=== PATIENT | female | born 1995 | race Caucasian/White ===

== ENCOUNTER 2023-12-06 11:21 | Emergency (ER) | payer OTHER, SELFPAY ==
[2023-12-06 11:23] VITALS: BP 157/96
[2023-12-06 11:36] VITALS: BMI 26.7
[2023-12-06 11:40] VITALS: BP 138/96
[2023-12-06] MEDS: NSS 1000 IV (11:47)
[2023-12-06 11:52] LABS: % Basophils 0.4 % (0-2); % Eosinophils 0.1 % (0-6); % Immature Granulocytes 0.2 % (0-0.5); % Lymphocytes 20.3 % (20.5-51.1); % Monocytes 7.1 % (1.7-9.3); % Neutrophils 71.9 % (42.2-75.2); Absolute Lymphocytes 1.9 10^3/uL (1.2-3.4); Absolute Monocytes 0.7 10^3/uL (0.1-0.6); Absolute Neutrophils 6.5 10^3/uL (1.4-6.5); Hematocrit 47.1 % (37.0-47.0); Hemoglobin 15.7 g/dL (12.0-16.0); Mean Corp Hgb Conc. 33.3 g/dL (33.0-37.0); Mean Corpuscular Hgb 29.7 pg (27.0-31.0); Mean Corpuscular Volume 89.2 fL (81.0-99.0); Mean Platelet Volume 10.5 fL (7.4-10.4); Nucleated Red Blood Cells % 0 %; Platelet Count 287 10^3/uL (130-400); Red Blood Cell Count 5.28 10^6/uL (4.20-5.40); Red Cell Dist. Width 12.3 % (11.5-14.5); White Blood Cell Count 9.1 10^3/uL (4.8-10.8)
[2023-12-06] MEDS: ZOFRAN 4 MG IV (11:52)
--- NOTE | 2023-12-06 11:54 | ED.GENMED ---
History of Present Illness
General
Chief Complaint: Abdominal Symptoms
Time Seen by Provider: 12/06/23 11:35
Travel History
Have you had any contact with someone who has COVID-19?: No
Do you have any symptoms of coronavirus? Fever > 100 degrees, chills, cough, shortness of breath, sore throat, loss of taste or smell, muscle aches, or headache?: No
History of Present Illness
History of Present Illness:
28-year-old female with no significant past medical history presents to the emergency department for evaluation of intractable vomiting for the past 3 to 4 days. Notes that she had a similar such episode last year that went on for approximately 3
weeks before resolving. She never followed up as an outpatient with gastroenterology. Reports no abdominal pain currently but is unable to tolerate any p.o. fluids due to symptoms. Denies any history of abdominal surgeries. No chronic medical
problems. Does endorse frequent marijuana usage at least twice per week. No chest pain, back pain, hematemesis, or melena.
Review of Systems
Review of Systems
Allergies reviewed?: Yes
All Other Systems: ROS reviewed and negative except as documented in HPI and ROS
Phy Exam
Physical Exam
Physical Exam:
GEN: Well appearing, NAD, WDWN
HEENT: Oral mucosa moist, no scleral icterus
Cardiac: Regular rate
Lung: No respiratory distress, no tachypnea
Abdomen: Soft, nontender, no rigidity, no peritoneal signs
MSK: No gross deformity or injuries
Skin: Good color, no pallor or jaundice, no rashes
Neuro: AO x3, moves all extremities freely
Psych: Calm, cooperative
Course
Orders/Labs/Results
Orders:
Orders
12/06/23 11:45
Complete Blood Count/With Diff Urgent
Comprehensive Metabolic Panel Urgent
Lipase Urgent
Comment: ADD ON
12/06/23 11:46
0.9% Sodium Chloride 1000 ml [Nss] 1,000 ml IV BOLUS
12/06/23 11:49
Urinalysis Reflex To Culture Urgent
Date Specimen was Collected: 12/06/23
Time Specimen was Collected: 11:49
Urine Microscopic Reflex Cult Urgent
12/06/23 11:51
Ondansetron Injectable [Zofran] 4 mg .ROUTE .STK-MED ONE
12/06/23 11:52
Add On- LAB Urgent
Tests Added?: lipase
Haloperidol Lactate [Haldol] 2 mg IV NOW STA
Ondansetron Injectable [Zofran] 4 mg IV NOW STA
12/06/23 11:53
Electrocardiogram (*1) Urgent
Reason for Study: QTc Monitoring
EKG- Treatment ONCE
Dextrose 5%/0.9%Sodchl 500 ml [D5/0.9% Sodium Chloride] 500 ml IV 500 mls/hr
Abnormal Lab Results
12/06/23 12/06/23
11:45 11:49
Hct 47.1 H %
(37.0-47.0)
MPV 10.5 H fL
(7.4-10.4)
Absolute Monos (auto) 0.7 H 10^3/uL
(0.1-0.6)
Lymphocytes % 20.3 L %
(20.5-51.1)
Glucose 113 H mg/dl
(70-99)
Total Bilirubin 1.4 H mg/dl
(0.2-1.3)
AST 38 H U/L
(14-36)
ALT 38 H U/L
(0-35)
Total Protein 8.7 H g/dl
(6.3-8.2)
Urine Ketones 3+ A
(Negative)
Ur Occult Blood Reflex 4+ A
(Negative)
Urine Bilirubin 1+ A
(Negative)
Urine Urobilinogen 3+ A
(Neg - 1+)
Leukocyte Esterase Rfl Trace A
(Negative)
Urine RBC 40-50 A /HPF
(0-2)
Urine Bacteria (Reflex) Few A
(Negative)
12/06/23 11:45
12/06/23 11:45
Vital Signs
Initial and Last Documented VS:
Initial Vital Signs
Temp Pulse Resp BP Pulse Ox
98.2 F 64 16 157/96 98
12/06/23 11:23 12/06/23 11:23 12/06/23 11:23 12/06/23 11:23 12/06/23 11:23
Last Documented Vital Signs
Temp Pulse Resp BP Pulse Ox
98.2 F 70 13 138/96 99
12/06/23 11:23 12/06/23 13:30 12/06/23 13:30 12/06/23 11:40 12/06/23 12:45
MDM/Problems Addressed
MDM/Problems Addressed:
Certainly consider the possibility of cannabinoid hyperemesis syndrome as the patient does endorse that symptoms improved after a warm shower. She was treated with antiemetics including haloperidol with good improvement in the emergency department,
able to tolerate p.o. fluids prior to discharge. She is a resident of [facility] and will be returning home shortly, encouraged her to follow-up with her primary care physician as well as gastroenterology upon her return. No indication for
imaging
*Critical Care Note
Total Time (30-74mins, 75-104mins- exclusive of procedures): Not Applicable
ED Attending Note
-
Portions of this chart may have been created with voice recognition software.� Occasional wrong word or��sound alike� substitutions may have occurred due to the inherent limitations of voice recognition software.
Discharge Plan
Departure
Patient Disposition: Home (Routine Discharge)
Date of Disposition: 12/06/23
Time of Disposition: 13:33
Patient with high blood pressure during this ER visit?: No
Discharge Problem:
Cyclic vomiting syndrome
Instructions: Nausea and Vomiting, Adult (DC)
Prescriptions:
New
ondansetron 4 mg tablet,disintegrating
4 mg PO TIDPRN PRN (Reason: nausea/vomiting) Qty: 20 0RF
Referrals:
UNKNOWN - PT DOES,NOT KNOW [Family Provider] -
Activity Restrictions/Additional Instructions:
You need to follow up with a banquet coordinator when you return to [place]
Return if symptoms worsen
Interventions
Interventions:
*Risk Screen - Suicide Last Done: 12/06/23 11:23
*General Assessment Last Done: 12/06/23 11:23
*Neglect/Abuse Screening Last Done: 12/06/23 11:23
ED- Fall Risk Assessment Last Done: 12/06/23 11:36
*ED COVID-19 Vaccine History Last Done: 12/06/23 11:36
*Nursing Disposition Last Done: 12/06/23 13:42
EH-Qslxiu-Fsxwkvkaog Assessment Last Done: 12/06/23 11:36
Discharge Date and Time
Discharge Date/Time: 12/06/23 13:43
Print Language: ICELANDIC
[2023-12-06 11:55] LABS: Urine Albumin Trace (Neg - Trace); Urine Bilirubin 1+ (Negative); Urine Character Clear (Clear); Urine Color Yellow; Urine Glucose Negative (Negative); Urine Ketone 3+ (Negative); Urine Leukocyte Trace (Negative); Urine Nitrite Negative (Negative); Urine Occult Blood 4+ (Negative); Urine Specific Gravity 1.015 (<1.030); Urine Urobilinogen 3+ (Neg - 1+); Urine pH 6.5 (5.0-9.0)
[2023-12-06] MEDS: D5/0.9% SODIUM CHLORIDE 500 IV (12:00)
[2023-12-06] MEDS: HALDOL 2 MG IV (12:07)
[2023-12-06 12:11] LABS: ALT (SGPT) 38 U/L (0-35); AST (SGOT) 38 U/L (14-36); Alkaline Phosphatase 65 U/L (38-126); Blood Urea Nitrogen 16 mg/dl (7-17); Calcium 9.7 mg/dl (8.4-10.2); Carbon Dioxide 24 mmol/L (22-30); Chloride 104 mmol/L (98-107); Estimated Creatinine Clearance 97 ml/min; Glucose 113 mg/dl (70-99); Lipase 98 U/L (23-300); Potassium 3.7 mmol/L (3.5-5.1); Sodium 136 mmol/L (135-145); Total Bilirubin 1.4 mg/dl (0.2-1.3); Total Protein 8.7 g/dl (6.3-8.2); eGFR > 60.00
[2023-12-06 12:52] LABS: Urine Mucus Moderate
[2023-12-06 12:53] LABS: Urine Bacteria Few (Negative); Urine Red Blood Cell 40-50 /HPF (0-2)
== END 2023-12-06 13:43 | disposition home or self-care (01) ==
LOC: EMR 11:21
PROVIDERS: Physician Assistant; EMERGENCY PHYSICIAN Emergency Medicine
DX: R11.15 Cyclical vomiting syndrome unrelated to migraine (principal)
CPT/HCPCS: 99284; 96374; 96375; 96361 ×2; 80053; 81003; 81015; 83690; 85025; 93005